=== PATIENT | male | born 1955 | race Two or more races ===

== ENCOUNTER 2018-05-29 23:21 | Inpatient (IN) | payer OTHER ==
[~2018-05-29] VITALS: Ht 167.6 cm; Wt 84.5 kg
[2018-05-30] MEDS ORDERED: methylPREDNISolone SOD SUCC 125 MG/2 ML VL IV ONE (00:15)
[2018-05-30] MEDS ORDERED: IPRATROPIUM BROM 0.5 MG/2.5ML INH SOL NEB ONE (00:30)
[2018-05-30] MEDS ORDERED: ALBUTEROL SULF 2.5 MG/0.5ML(0.5%) NEB SOLN NEB ONE (00:30)
[2018-05-30 01:07] LABS: Basophils # (auto) 0 uL; Basophils % (auto) 0.3 % (0.0-2.0); Eosinophils # (auto) 0.1 uL; Eosinophils % (auto) 1.4 % (0.0-7.0); Hematocrit 38.1 % (41.0-53.0); Hemoglobin 12.8 g/dL (13.5-17.5); Lymphocytes # (auto) 0.8 uL; Lymphocytes % (auto) 8.9 % (10.0-50.0); Mean Corpuscular Hemoglobin 30.8 pg (28.0-32.0); Mean Corpuscular Hgb Conc. 33.6 g/dL (32.0-36.0); Mean Corpuscular Volume 91.5 fL (80.0-100.0); Monocytes # (auto) 0.8 uL; Monocytes % (auto) 8.3 % (0.0-12.0); Neutrophils # (auto) 7.8 uL; Neutrophils % (auto) 81.1 % (37.0-80.0); Nucleated Red Blood Cells % 0.1 %; Platelet Count (auto) 361 10^3/uL (140-450); Red Blood Cells 4.17 10^6/uL (4.5-5.90); Red Cell Distribution Width 12.7 % (11.8-14.3); White Blood Cell 9.6 10^3/uL (4.4-10.8)
[2018-05-30] MEDS ORDERED: SODIUM CHLORIDE 0.9% 1,000 ML IV ONE (01:15)
[2018-05-30 01:24] LABS: INR 0.95 (0.9-1.15); Partial Thromboplastin Time 23.3 sec (23.78-33.04); Prothrombin Time 10.2 sec (9.27-12.13)
[2018-05-30 01:32] LABS: Alanine Aminotransferase 64 U/L (16-61); Albumin 3.5 g/dL (3.4-5.0); Anion Gap 10 (5-15); Aspartate Aminotransferase 26 U/L (15-37); BUN/Creatinine Ratio 12.5; Blood Urea Nitrogen 19 mg/dL (7-18); Calcium 8.8 mg/dL (8.5-10.1); Carbon Dioxide 26 mmol/L (21-32); Chloride 102 mmol/L (98-107); GFR African American 60 mL/min; GFR Non-African American 50 mL/min; Glucose 196 mg/dL (74-106); Potassium 3.2 mmol/L (3.5-5.1); Sodium 138 mmol/L (136-145)
[2018-05-30 01:37] LABS: Alkaline Phosphatase 101 U/L (45-117); Bilirubin, Total 0.3 mg/dL (0.2-1.0); Total Protein 7.7 g/dL (6.4-8.2)
[2018-05-30] MEDS ORDERED: PANTOPRAZOLE 40 MG TAB PO ONE (07:00)
[2018-05-30] MEDS ORDERED: AZITHROMYCIN 250 MG TAB PO ONE (07:00)
[2018-05-30] MEDS ORDERED: DEXTROSE (50%) 50ML SYRG IV PRN (07:15)
[2018-05-30] MEDS: ACCU-CHEK COMFORT CURVE STRIP VI SCH ×4 (07:36→21:52)
[2018-05-30] MEDS: InsuLIN REG 1unit/0.01ml Soln (100units/ml) SC SCH ×4 (07:45→21:57)
[2018-05-30 08:52] VITALS: BP 145/85
[2018-05-30] MEDS: cefTRIAXone 1GM/10ml IVPUSH 10 ML IV SCH (09:16)
[2018-05-30] MEDS ORDERED: HYDROcodone-ACET 10/325MG TAB PO PRN (09:45)
[2018-05-30] MEDS: methylPREDNISolone SOD SUCC 125 MG/2 ML VL IV SCH ×2 (09:45→21:45)
[2018-05-30] MEDS ORDERED: PATIENTS OWN MEDICATION PO SCH (10:00)
[2018-05-30] MEDS ORDERED: HYDROcodone-ACET 10/325MG TAB PO SCH (10:00)
[2018-05-30] MEDS ORDERED: LISINOPRIL 10 MG TAB PO SCH (10:00)
[2018-05-30] MEDS ORDERED: METOPROLOL SUCCINATE XL 50 MG TAB PO SCH (10:00)
[2018-05-30] MEDS: ALBUTEROL SULF 2.5 MG/0.5ML(0.5%) NEB SOLN NEB SCH ×2 (11:05→18:33)
[2018-05-30] MEDS: BUDESONIDE (INHALATION) 0.5 MG/2 ML NEB NEB SCH ×2 (11:05→18:33)
[2018-05-30] MEDS ORDERED: ACCU-CHEK COMFORT CURVE STRIP VI SCH (11:30)
[2018-05-30 16:15] VITALS: BP 140/87
[2018-05-30] MEDS ORDERED: MOME100A IN (17:02)
[2018-05-30] MEDS ORDERED: ALBU2TAB4 PO (17:02)
[2018-05-30] MEDS ORDERED: LISI40TA PO (17:02)
[2018-05-30] MEDS ORDERED: INSUINJ2 SC ×2 (17:02)
[2018-05-30] MEDS ORDERED: AMIT25TA9 PO (17:02)
[2018-05-30] MEDS ORDERED: HYDR25TA4 PO (17:02)
[2018-05-30] MEDS ORDERED: IBUP800T24 PO (17:02)
[2018-05-30] MEDS ORDERED: ATOR10TA PO (17:02)
[2018-05-30] MEDS ORDERED: AMLO5TAB2 PO (17:02)
[2018-05-30] MEDS ORDERED: RANI150C11 PO (17:02)
[2018-05-30 17:36] VITALS: BP 152/82
[2018-05-30] MEDS: METOPROLOL SUCCINATE XL 50 MG TAB PO SCH (21:49)
[2018-05-30] MEDS: MONTELUKAST SODIUM 10 MG TAB PO SCH (21:51)
[2018-05-30] MEDS: INSULIN LANTUS (GLARGINE) 1 /0.01ml (100units/ml) SC SCH (21:57)
[2018-05-30 22:00] VITALS: BP 135/76
[2018-05-31] MEDS: ALBUTEROL SULF 2.5 MG/0.5ML(0.5%) NEB SOLN NEB SCH ×5 (00:15→23:36)
[2018-05-31 05:10] VITALS: BP 140/83
[2018-05-31] MEDS: ACCU-CHEK COMFORT CURVE STRIP VI SCH ×4 (06:12→21:26)
[2018-05-31] MEDS: InsuLIN REG 1unit/0.01ml Soln (100units/ml) SC SCH ×4 (06:14→21:26)
[2018-05-31] MEDS: BUDESONIDE (INHALATION) 0.5 MG/2 ML NEB NEB SCH ×2 (06:16→18:57)
[2018-05-31 09:25] VITALS: BP 127/71
[2018-05-31] MEDS: cefTRIAXone 1GM/10ml IVPUSH 10 ML IV SCH (09:49)
[2018-05-31] MEDS: LOSARTAN POTASSIUM 50 MG TAB PO SCH (09:50)
[2018-05-31] MEDS: LORATADINE 10 MG TAB PO SCH (09:52)
[2018-05-31] MEDS: METOPROLOL SUCCINATE XL 50 MG TAB PO SCH ×2 (09:53→21:25)
[2018-05-31] MEDS: methylPREDNISolone SOD SUCC 125 MG/2 ML VL IV SCH ×2 (10:03→21:25)
[2018-05-31] MEDS: FLUTICASONE PROP NASAL SPR 0.05 % (50MCG) 16GM EACHNOSTRI SCH (10:24)
[2018-05-31] MEDS: LACTULOSE 20Gm/30ML SOLN PO SCH ×3 (11:47→22:58)
[2018-05-31 13:58] VITALS: BP 139/87
[2018-05-31 18:02] VITALS: BP 133/80
[2018-05-31] MEDS: MONTELUKAST SODIUM 10 MG TAB PO SCH (21:25)
[2018-05-31] MEDS: INSULIN LANTUS (GLARGINE) 1 /0.01ml (100units/ml) SC SCH (21:26)
[2018-05-31 22:00] VITALS: BP 138/83
[2018-06-01] MEDS ORDERED: InsuLIN REG 1unit/0.01ml Soln (100units/ml) SC ONE (00:30)
[2018-06-01 05:00] VITALS: BP 127/76
[2018-06-01] MEDS: LACTULOSE 20Gm/30ML SOLN PO SCH ×3 (05:56→17:15)
[2018-06-01] MEDS: ACCU-CHEK COMFORT CURVE STRIP VI SCH ×3 (06:05→17:15)
[2018-06-01] MEDS: InsuLIN REG 1unit/0.01ml Soln (100units/ml) SC SCH ×3 (06:05→17:22)
[2018-06-01] MEDS: ALBUTEROL SULF 2.5 MG/0.5ML(0.5%) NEB SOLN NEB SCH ×3 (06:15→18:42)
[2018-06-01] MEDS: BUDESONIDE (INHALATION) 0.5 MG/2 ML NEB NEB SCH ×2 (06:15→18:41)
[2018-06-01 09:00] VITALS: BP 143/82
[2018-06-01] MEDS: cefTRIAXone 1GM/10ml IVPUSH 10 ML IV SCH (09:50)
[2018-06-01] MEDS: LORATADINE 10 MG TAB PO SCH (09:51)
[2018-06-01] MEDS: methylPREDNISolone SOD SUCC 125 MG/2 ML VL IV SCH (09:51)
[2018-06-01] MEDS: LOSARTAN POTASSIUM 50 MG TAB PO SCH (09:52)
[2018-06-01] MEDS: METOPROLOL SUCCINATE XL 50 MG TAB PO SCH (10:03)
[2018-06-01] MEDS: FLUTICASONE PROP NASAL SPR 0.05 % (50MCG) 16GM EACHNOSTRI SCH (10:33)
[2018-06-01 13:00] VITALS: BP 151/77
[2018-06-01 17:00] VITALS: BP 158/91
[2018-06-01 19:44] VITALS: BP 147/87
[2018-06-01] MEDS ORDERED: METOPROLOL SUCCINATE XL 50 MG TAB PO SCH (22:00)
[2018-06-01] MEDS ORDERED: methylPREDNISolone SOD SUCC 125 MG/2 ML VL IV SCH (22:00)
== END 2018-06-01 20:50 | DRG 191 ==
LOC: EEVIPCON 23:21 → EDBD 23:21 → ER 23:21 → EEVIPCON 23:22 → TELE 23:22 → TELE-EAST 05-30 16:23
PROVIDERS: ADMIT Internal Medicine; ATTEND Internal Medicine
DX: J44.0 Chronic obstructive pulmonary disease with (acute) lower respiratory infection (principal); J45.901 Unspecified asthma with (acute) exacerbation; J20.9 Acute bronchitis, unspecified; R07.89 Other chest pain; D86.9 Sarcoidosis, unspecified; E11.65 Type 2 diabetes mellitus with hyperglycemia; R55 Syncope and collapse; E78.00 Pure hypercholesterolemia, unspecified; E86.0 Dehydration; E87.6 Hypokalemia; F41.9 Anxiety disorder, unspecified; I10 Essential (primary) hypertension; K21.9 Gastro-esophageal reflux disease without esophagitis; E66.9 Obesity, unspecified; Z98.41 Cataract extraction status, right eye; Z98.42 Cataract extraction status, left eye; Z68.30 Body mass index [BMI] 30.0-30.9, adult
CPT/HCPCS: 36415; 70450; 71045; 80053; 82962; 83880; 84484; 85025; 85379; 85610; 85730; 87081; 93005; 94640; 96374; J0696; J1815

== ENCOUNTER 2018-07-07 21:22 | Emergency (ER) | payer OTHER ==
[~2018-07-07] VITALS: Ht 167.6 cm; Wt 72.6 kg
[~2018-07-07 21:22] MED LIST: ALBU2TAB4 PO; AMIT25TA9 PO; AMLO5TAB13 PO; ATOR10TA PO; HYDR25TA4 PO; IBUP800T24 PO; INSUINJ2 SC; MOME100A IN; RANI150C11 PO
[2018-07-08 03:19] VITALS: BP 149/89
== END 2018-07-08 03:40 | disposition short-term general hospital (02) ==
LOC: ER 21:22
DX: T86.841 Corneal transplant failure (principal); J45.909 Unspecified asthma, uncomplicated; K21.9 Gastro-esophageal reflux disease without esophagitis; E78.5 Hyperlipidemia, unspecified; I10 Essential (primary) hypertension; Z88.8 Allergy status to other drugs, medicaments and biological substances; Z79.4 Long term (current) use of insulin; Z79.899 Other long term (current) drug therapy; Y83.0 Surgical operation with transplant of whole organ as the cause of abnormal reaction of the patient, or of later complication, without mention of misadventure at the time of the procedure; Y92.89 Other specified places as the place of occurrence of the external cause